=== PATIENT | female | born 1995 | race Caucasian/White ===

== ENCOUNTER → 2020-07-24 08:07 | Outpatient (CLI) | payer OTHER, SELFPAY ==
--- NOTE | 2020-07-24 08:17 | RAD_ITS ---
STUDY: X-RAY - ESOPHAGUS (BARIUM SWALLOW) WITH FLUOROSCOPY REASON FOR EXAM: Female, 25 years old. SENSATION IF SOMETHING BEING STUCK IN THROAT X 2 YEARS, CONSTANT THROAT CLEARING -- 7.32 mGy TECHNIQUE: 15 view(s) of the esophagus were obtained following swallowing of barium. FLUOROSCOPY TIME (if supplied): (0:28) minutes/seconds COMPARISON: None. FINDINGS: There is no demonstrated esophageal foreign body. There is no demonstrated stricture or mucosal abnormality. Normal gastroesophageal junction, without a demonstrated hiatal hernia. The patient ingested a 12 mm tablet of barium without any difficulty. Normal visualized aortic arch and descending thoracic aorta. Normal visualized pulmonary parenchyma. Normal visualized osseous structures of the thorax. RAD/Esophagus Dual Contrast IMPRESSION: Normal plain film x-ray examination (barium swallow) of the esophagus. Electronically Signed: Fly Escobedo MD at 10:22 EST , Service support ,
== END ==
PROVIDERS: Referring Provider Otolaryngology; Visit Provider Otolaryngology
DX: R13.10 Dysphagia, unspecified (principal)
CPT/HCPCS: 74221

== ENCOUNTER 2021-08-22 07:08 | Day surgery (SDC) | payer BC, SELFPAY ==
--- NOTE | 2021-08-22 | ESO_PTH ---
PATIENT: MARTIN HARVEY LOC: [facility] U#:[id number] AGE/SX: 26/F ROOM: RE08/22/[address]: Dr. Patel Harmon DO : 1995 BED: DIS: 08/22/2021 SPEC #: [id number] RECD: 08/22/21 12:34 STATUS: OKSANA EDIE #: [id number] SHANIQUE: 08/22/21 00:[address]: Patel Harmon DEPT: SURGICAL PATHOLOGY RECD BY: Ivan Ballard ENTERED: 08/22/21 12:34 SP TYPE: ROSITA IZQUIERDO DR: Dr. Shaq Bergman MD Tissues: A - Esophagus, NOS B - Esophageal mucous membrane Procedures: Special Stain Group II Surgery Specimen Level IV Alcian Blue/PAS (control) HEADER OPERATION: [place] PRE-OP DIAGNOSIS: Chronic throat clearing, heartburn TISSUE SUBMITTED: A ? Distal esophagus biopsy, B ? Random esophagus biopsy MICROSCOPIC DIAGNOSIS A. Distal esophagus, biopsy: Gastroesophageal junctional mucosa with chronic inflammation. Focal goblet cell metaplasia is present. No evidence of dysplasia. See comment. B. Esophagus, biopsy: No pathologic change. AM:rosalinda 08/23/2021 COMMENT A. Alcian blue/PAS stain with matched control supports the above diagnosis. MICROSCOPIC DESCRIPTION Slides are reviewed. GROSS DESCRIPTION A - Received in fixative is one container labeled with the patient's name and designated esophagus biopsy. The specimen consists of two irregular fragments of light veliz soft tissue that in aggregate measure 0.6 x 0.6 x 0.1 cm. The specimen is totally submitted in one cassette. B - Received in fixative is one container labeled with the patient's name and designated random esophagus biopsy. The specimen consists of multiple irregular fragments of light veliz soft tissue that in aggregate measure 0.7 x 0.3 x 0.1 cm. The specimen is totally submitted in one cassette. / AM:rosalinda 08/22/2021 TC:3 CPT: 50561 x2, 99439
[2021-08-22 07:39] VITALS: BP 106/65; PULSE 86; RESP 18; TEMP 36.7; O2SAT 100; BMI 20.9
[2021-08-22 07:40] LABS: Internal QC Validated? YES +Cl - CLEAR BKGD; Pregnancy, Urine Negative Negative
[2021-08-22] MEDS: Lactated Ringers 1,000 ML 15 ML IV (07:40)
--- NOTE | 2021-08-22 08:24 | HP.PCM_ITS ---
History and Physical Date of Admission: 08/22/21 MARTIN HARVEY, is a 26 F who presents to the office today for 6 wk f/u chronic throat clearing that began several years ago. At her appt last month, Dr Harmon changed her from omeprazole 40 mg daily, since it didn't help the throat clearing, to famotidine 20 mg BID and cetirizine QAM. She notes some improvement in throat clearing during the day. Still most symptomatic around 8 AM. Usually doing schoolwork at that time. Master's program online in behavior analysis. Doesn't matter if she has coffee or breakfast or not. Still takes omeprazole prn for heartburn, gets it few times a week. Heartburn not worse since she stopped omeprazole; it does help to take omeprazole--but she wonder if it's psychosomatic that it gives relief. No pattern she can discern. Has never had EGD. ENT has evaluated her twice, no cause for the throat clearing found, no issues found. ROS ENT ENT: Positive for nasal congestion Gastro GI: Positive for heartburn Musc Musculoskeletal: Positive for back pain, numbness and tingling Neuro Neurology: Positive for numbness and tingling Exam Const General: cooperative, well developed and well groomed HENMT Throat: other (clears throat repeatedly) Psych Mood: anxious mood Quality Reporting Tobacco Screening ([facility]) Smoking Status: Former smoker Assessment and Plan Assessment and Plan (1) Chronic throat clearing: Status: Chronic (2) Heartburn: Status: Acute Plan: Some improvement in chronic throat clearing so she would like to continue with current regimen of cetirizine QAM and famotidine 20 mg BID. Because she has chronic heartburn it makes sense to get upper endoscopy to r/o esophagitis, Farmer's esophagus, gastritis. Can continue omeprazole prn. f/u 2 wks after EGD I have re-examined the patient. There are no clinical changes since date of exam.
[2021-08-22 08:51] VITALS: BP 106/65; BP 90/57; PULSE 97; RESP 16; TEMP 36.4; O2SAT 96
--- NOTE | 2021-08-22 08:54 | OP.EGD_ITS ---
Patient Name: Jazmyn Garcia Procedure Date: 08/22/2021 8:25 AM Date of : 1995 Age: 26 Procedure: Upper GI endoscopy Indications: Failure to respond to medical treatment Providers: Patel Harmon DO Medicines: See the Anesthesia note for documentation of the administered medications Patient Profile: This is a 26 year old female. Refer to note in patient chart for documentation of history and physical. Patient has symptoms of acute throat burning. Complications: No immediate complications. Procedure: Pre-Anesthesia Assessment: - Prior to the procedure, a History and Physical was performed, and patient medications and allergies were reviewed. The patient is competent. The risks and benefits of the procedure and the sedation options and risks were discussed with the patient. All questions were answered and informed consent was obtained. Patient identification and proposed procedure were verified by the physician in the pre-procedure area. Mental Status Examination: alert and oriented. Airway Examination: normal oropharyngeal airway and neck mobility. Respiratory Examination: clear to auscultation. CV Examination: normal. Prophylactic Antibiotics: The patient does not require prophylactic antibiotics. Prior Anticoagulants: The patient has taken no previous anticoagulant or antiplatelet agents. ASA Grade Assessment: II - A patient with mild systemic disease. After reviewing the risks and benefits, the patient was deemed in satisfactory condition to undergo the procedure. The anesthesia plan was to use moderate sedation / analgesia (conscious sedation). Immediately prior to administration of medications, the patient was re-assessed for adequacy to receive sedatives. The heart rate, respiratory rate, oxygen saturations, blood pressure, adequacy of pulmonary ventilation, and response to care were monitored throughout the procedure. The physical status of the patient was re-assessed after the procedure. After obtaining informed consent, the endoscope was passed under direct vision. Throughout the procedure, the patient's blood pressure, pulse, and oxygen saturations were monitored continuously. The gastroscope was introduced through the mouth, and advanced to the second part of duodenum. The upper GI endoscopy was accomplished without difficulty. The patient tolerated the procedure well. Moderate Sedation: Moderate (conscious) sedation was administered by the endoscopy nurse and supervised by the endoscopist. The patient's oxygen saturation, heart rate, blood pressure and response to care were monitored. Total physician intraservice time was 15 minutes. Scope In: 8:41:30 AM Scope Out: 8:46:20 AM Total Procedure Duration Time 0 hours 4 minutes 50 seconds Findings: LA Grade A (one or more mucosal breaks less than 5 mm, not extending between tops of 2 mucosal folds) esophagitis with no bleeding was found 34 to 36 cm from the incisors. Biopsies were taken with a cold forceps for histology. Verification of patient identification for the specimen was done. Estimated blood loss was minimal. No gross lesions were noted in the entire examined stomach. The second portion of the duodenum was normal. Impression: - LA Grade A reflux esophagitis. Biopsied. - No gross lesions in the stomach. - Normal second portion of the duodenum. Recommendation: - Await pathology results. - Repeat upper endoscopy in 1 year. - Return to GI office. - Continue present medications. Procedure Code(s): --- Professional --- 84411, Esophagogastroduodenoscopy, flexible, transoral; with biopsy, single or multiple 19019, 59, Moderate sedation services provided by the same physician or other qualified health associate director career services performing the diagnostic or therapeutic service that the sedation supports, requiring the presence of an independent trained observer to assist in the monitoring of the patient's level of consciousness and physiological status; initial 15 minutes of intraservice time, patient age 5 years or older CPT copyright 2017 [employer] [employer]. All rights reserved. The codes documented in this report are preliminary and upon buffet waiter/waitress review may be revised to meet current compliance requirements. Patel Harmon DO 08/22/2021 8:53:41 AM This report has been signed electronically. Number of Addenda: 1 Note Initiated On: 08/22/2021 8:25 AM Addendum Number: 1 Addendum Date: 03/06/2022 6:28:31 AM MAC was used as sedation for this procedure. Patel Harmon DO 03/06/2022 6:28:38 AM This report has been signed electronically.
[2021-08-22 08:55] VITALS: BP 106/65; BP 90/51; PULSE 93; RESP 16; O2SAT 96
--- NOTE | 2021-08-22 08:55 | OP.CCLET_ITS ---
03/06/2022 Shaq Bergman [address] [place] [address] [place] [address] Re : Upper GI endoscopy procedure for Jazmyn Garcia Dear Dr. Bergman This procedure was performed on Sunday, August 22, 2021. My impressions and recommendations are as follows: Impressions : - LA Grade A reflux esophagitis. Biopsied. - No gross lesions in the stomach. - Normal second portion of the duodenum. Recommendations : - Await pathology results. - Repeat upper endoscopy in 1 year. - Return to GI office. - Continue present medications. My findings are described in the full procedure note, which is enclosed. If I can be of further assistance, please feel free to contact me at . Sincerely, Patle Harmon, 08/22/2021 8:53:41 AM This report has been signed electronically.
[2021-08-22 09:00] VITALS: BP 100/72; BP 106/65; PULSE 79; RESP 16; O2SAT 99
[2021-08-22 09:07] VITALS: BP 106/65; BP 110/71; PULSE 87; RESP 16; TEMP 36.6; O2SAT 100
[2021-08-22 09:20] VITALS: BP 106/65
== END 2021-08-22 23:59 | disposition home or self-care (01) ==
LOC: EN 07:11 → AC 07:12
PROVIDERS: Anesthesiology; PCP Family Medicine; Referring Provider Family Medicine; Visit Provider Internal Medicine Gastroenterology
PROC: 0DJ08ZZ Inspection of Upper Intestinal Tract, Via Natural or Artificial Opening Endoscopic (ICD-10-PCS; CPT 43235; principal; 2021-08-22 08:10)
DX: K21.00 Gastro-esophageal reflux disease with esophagitis, without bleeding (principal); Z87.891 Personal history of nicotine dependence; F41.9 Anxiety disorder, unspecified; J45.909 Unspecified asthma, uncomplicated; Z79.899 Other long term (current) drug therapy; F32.A Depression, unspecified; G25.81 Restless legs syndrome
CPT/HCPCS: 43239; 81025; 87426; 88305; 88313; J7120; J2405

== ENCOUNTER → 2021-12-08 | Outpatient (CLI) | payer OTHER, SELFPAY ==
--- NOTE | 2021-12-08 10:17 | US_ITS ---
STUDY: THYROID ULTRASOUND REASON FOR EXAM: Female, 26 years old. Throat clearing, depression, possible palpable nodule TECHNIQUE: Ultrasound evaluation of the thyroid was performed with real-time and static johnson-scale imaging. COMPARISON: None. FINDINGS: RIGHT LOBE: The right lobe of the thyroid gland measures 4.5 x 1.3 x 1.1 cm. There is a homogeneous echotexture. There are no demonstrated solid, cystic or complex lesions. LEFT LOBE: The left lobe of the thyroid gland measures 3.7 x 1.5 x 1.0 cm. There is a homogeneous echotexture. There are no demonstrated solid, cystic or complex lesions. ISTHMUS: The isthmus measures 0.34 cm. US/Thyroid IMPRESSION: Enlarged right lobe of the thyroid gland. No discrete nodules. Electronically Signed: Leigh Dolan MD at 17:53 EDT ,
== END | disposition home or self-care (01) ==
LOC: US 10:16
PROVIDERS: PCP Family Medicine; Referring Provider Surgery; Visit Provider Surgery
DX: R09.89 Other specified symptoms and signs involving the circulatory and respiratory systems (principal); F32.A Depression, unspecified; E07.89 Other specified disorders of thyroid
CPT/HCPCS: 76536

== ENCOUNTER 2021-12-20 07:31 | Day surgery (SDC) | payer OTHER, SELFPAY ==
[2021-12-20] VITALS (7 sets, daily range): BP systolic 85–103; BP diastolic 57–71; PULSE 71–87; RESP 16–18; TEMP 36.1–36.6; O2SAT 99–100; BMI 20.9
[2021-12-20 08:08] LABS: Internal QC Validated? YES +Cl - CLEAR BKGD; Pregnancy, Urine Negative Negative
[2021-12-20] MEDS: Lactated Ringers 1,000 ML 15 ML IV (08:29)
--- NOTE | 2021-12-20 08:30 | IMM_PTH ---
PATIENT: MARTIN HARVEY LOC: [facility] U#:[id number] AGE/SX: 26/F ROOM: RE12/20/[address]: Dr. David Tracy MD : 1995 BED: DIS: 12/20/2021 SPEC #: [id number] RECD: 12/20/21 12:58 STATUS: OKSANA RESandor #: [id number] SHANIQUE: 12/20/21 08:[address]: David Tracy DEPT: IMMUNOHISTOCHEMISTRY RECD BY: Mary Beth Fox ENTERED: 12/20/21 12:58 SP TYPE: IMMUNO OTHR DR: Dr. Shaq Bergman MD Tissues: Stomach, NOS Procedures: H Pylori (initial) PHYSICIAN & INSTITUTION [place] [address] SPECIMEN INFORMATION: Tissue Source: Antrum biopsy Clinical Info: Chronic throat clearing, Farmer?s esophagus Specimen Number: [id number] CPT code: 75376 METHODOLOGY: Deparaffinized sections of prefer/formalin-fixed tissue or PAP/DQ stained slides are incubated with monoclonal/polyclonal antibodies/oligonucleotide probes. Localization is made via biotin free immunoperoxidase method. Appropriate controls are performed and reacted as expected. Results on target cell population are indicated in the following table: RESULTS: ANTIBODY / CLONE RESULT H Pylori (polyclonal) negative These tests were developed and their performance characteristics determined by [facility]. They may not have been cleared or approved by the U.S. Food and Drug Administration. The FDA has determined that such clearance or approval is not necessary. The above immunohistochemical/dualISH markers are ordered and reviewed by the Pathologist. INTERPRETATION: Antrum, biopsy: Negative for Helicobacter pylori organisms. SUZANNE:rosalinda 12/21/2021
--- NOTE | 2021-12-20 08:30 | EGD_PTH ---
PATIENT: MARTIN HARVEY LOC: EN U#:[id number] AGE/SX: 26/F ROOM: RE12/20/[address]: Dr. David Tracy MD : 1995 BED: DIS: 12/20/2021 SPEC #: [id number] RECD: 12/20/21 10:26 STATUS: OKSANA MCKINNEYSandor #: [id number] SHANIQUE: 12/20/21 08:[address]: David Tracy DEPT: SURGICAL PATHOLOGY RECD BY: Elizabeth Guzman ENTERED: 12/20/21 11:09 SP TYPE: EGD BIOPSY OT DR: Dr. Shaq Bergman MD Tissues: Gastric mucous membrane Procedures: Surgery Specimen Level IV HEADER OPERATION: EGD ? 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 pylori MICROSCOPIC DIAGNOSIS Antrum, biopsy: Mild gastritis. See microscopic description and comment. SJ:rosalinda 12/21/2021 COMMENT The results of immunohistochemistry for Helicobacter pylori will be reported separately ([id number]). MICROSCOPIC DESCRIPTION Slides are reviewed. The specimen shows fragments of gastric mucosa with chronic inflammatory cell infiltrates in the lamina propria consisting of lymphocytes and plasma cells, consistent with mild chronic gastritis. GROSS DESCRIPTION Received in fixative is one container labeled with the patient's name and designated antrum biopsy. The specimen consists of multiple irregular fragments of light veliz soft tissue that in aggregate measure 0.7 x 0.4 x 0.1 cm. The specimen is totally submitted in one cassette. / SUZANNE:rosalinda 12/20/2021 TC:3 CPT: 31325
--- NOTE | 2021-12-20 08:39 | HP.PCM_ITS ---
History and Physical Date of Admission: 12/20/21 Date of Service:? 11/26/21 MR#: [id number] Acct: [id number] Name:MARTIN HIGGINBOTHAM Rep #: [id number] : 1995 ? ? Provider: Dr. David Tracy MD Age/Sex:? 26/F ? ? Location: [facility] Status: Signed Intake Vital Signs ? 11/26/2208:23 Height 5 ft 5 in Weight: 127 lb 2 oz BMI 21.1 BP 111/70 Blood Pressure Location Lt brachial Position Sitting Respiration 16 Pulse 89 Pulse Source Monitor Temp 98 F Temp Source Temporal Pulse Oximetry (%) 100 Oxygen Delivery Method room air Intake Visit Reasons:?FUNDOPLICATION Chief Complaint: GERD; Fundoplication Wash Driller Required: No Is patient in pain?: No Allergies No Known Allergies Allergy (Verified 11/26/21 09:24) Medications bupropion HCl 100 mg tablet,12 hr sustained-release 100 mg PO BID 05/28/21 [History Confirmed 11/26/21] buspirone 5 mg tablet 5 mg PO BID 05/28/21 [History Confirmed 11/26/21] pantoprazole 40 mg tablet,delayed release 40 mg PO BID #60 tabs 10/08/21 [Rx Confirmed 11/26/21] PFSH Medical History? Alcohol use Anxiety Asthma Back pain Farmer's esophagus Chronic throat clearing Depression Eczema Former smoker Gastric reflux GERD (gastroesophageal reflux disease) Restless legs Seasonal allergies Surgical History? Hx of tonsillectomy Family History?(Updated 11/26/21 @ 09:23 by Odalis Friday) Mother Rheumatoid arthritisFather Colon cancer Anxiety Hypertension Heart diseaseUnknown Thyroid disorder Social History? 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 Former smoker alcohol intake:? current alcohol intake frequency: a few times a month Alcohol type: wine substance use type:? does not use what type of physical activity do you participate in:? walking HPI HPI HPI: MARTIN HARVEY, is a 26 F who presents to the office today for frequent throat clearing and finding of Farmer's esophagus on EGD from August 2021.? They are referred for surgical consultation from Dr. Harmon, gastroenterology. ? Patient states that she has minimal experience of heartburn.? Her symptoms of frequent throat clearing have been present since 2019.? She states she worked with an marble setter helper but was unable to come to any meaningful conclusions.? She denies any relation to any recent COVID diagnoses.? She states the symptoms are worse in the morning than in the evening.? There does not seem to be any clear correlation with food as she will sometimes experience the symptoms in the absence of any food intake at all.? She does believe that eating larger meals may contribute to her symptoms.? There is an occasional association of phlegm with the symptoms.? Denies any significant weight changes.? She denies any new life stressors.? Caffeine intake is limited to 1 cup coffee daily.? She has been on both omeprazole and pantoprazole.? She states that she discontinued the pantoprazole that she was recently prescribed because she felt there is at least some marginal benefit with omeprazole, but no benefit with the pantoprazole.? She denies any notice of new neck masses.? She does have a family history of thyroid disorders in maternal grandmother. Previous work-up has included: EGD on 08/22/2021 with biopsy findings of Farmer's esophagus without dysplasia.? She also had a prior barium swallow on 07/24/2020 which was read as normal and there is no mention of hiatal hernia or acid reflux. ROS General General: No weight change, appetite, fatigue, colon cancer, breast cancer or weakness HEENT HEENT: No difficulty swallowing, eye injury, eye surgery, swollen glands or hoarseness Endo Endocrine: No thyroid disease, diabetes mellitus, thyroid cancer, Hair loss, heat intolerance or cold intolerance Skin Skin: No rash or changing moles Musc Musculoskeletal: Yes back problems; No arthritis, rheumatoid arthritis, gout or joint pain Cardio Cardiovascular: No murmur, pacemaker, heart disease, atrial fibrillation, high blood pressure, heart attack, heart stent, palpitations, shortness of breat with exertion or chest pain Psych Psychiatric: Yes depression and anxiety; No hearing voices Resp Respiratory: No shortness of breath, No sleep apnea, No cough, No COPD, No asthma, No emphysema and No wheezing Gastro Gastrointestinal: No abdominal pain, No nausea or vomiting, No diarrhea, No constipation, No blood in stool, Yes acid reflux, No hemorrhoids, No ulcers, No gallbladder problem and No black,tarry stools Stas Hematologic: No blood thinners, No blood disorders, No bleeding, No anemia and No blood clots Neuro Neurologic: No system reviewed and no additional complaints, except as documented, No as per HPI, No abnormal gait, No abnormal hearing, No abnormal movements, No abnormal speech, No behavioral changes, No burning sensations, No confusion, No convulsions, No disequilibrium, No dizziness, No localized weakness, No frequent falls, No headache(s), No lack of coordination, No loss of vision, No memory loss, No numbness, No other visual disturbances, No radicular pain, No restless legs, No sensory deficit, No syncope, No tingling, No tremor(s), No weakness and No other Exam Const General: cooperative, healthy appearing, comfortable and no acute distress Neck Thyroid: nontender Lymphatic: no lymphadenopathy noted Other: slight fullness of right neck > left Resp Effort & Inspection: normal respiratory effort Auscultation: no rales, no rhonchi and no wheezes Cardio Rate: regular rate Rhythm: regular rhythm Heart Sounds: S1 normal and S2 normal GI Inspection: non-distended and no scars Palpation: soft, no hernias and nontender Assessment and Plan Assessment and Plan (1) Chronic throat clearing: ?Status:?Chronic ?Comment: Is a 26-year-old female who presents with a 3-year history of frequent throat clearing.? She finds this symptom rather distressing and went for work-up with marble setter helper that was nonrevealing.? Subsequent referral to gastroenterology uncovered Farmer's esophagus on EGD and August 2021.? She now presents for consideration of possible antireflux surgery.? To date, upper GI was unremarkable and discussions have been held regarding possible pH probe and manometry.? Given her atypical symptoms with very minimal complaints of heartburn.? I would like to proceed with repeat EGD and pH probe placement.? Also investigate the possibility of thyroid involvement for completeness of work-up and have ordered a thyroid ultrasound. ?Plan: ? Schedule for EGD with pH probe placement ? Thyroid ultrasound ordered (2) Farmer's esophagus: ?Status:?Acute ?Comment: We will continue work-up for gastroesophageal reflux disease.? I have counseled patient that symptoms are somewhat atypical and would like to further investigation somewhat before discussing possible fundoplication. ?Plan: EGD with pH probe placement, then possible manometry (3) Palpable thyroid: ?Status:?Acute ?Comment: Patient has somewhat asymmetrical thyroid gland.? No discrete nodularity, but seems to be more full on the right side.? We will follow with formal thyroid ultrasound.? Patient does have a family history of thyroid disorders in maternal grandmother. I have re-examined the patient. There are no clinical changes since date of exam. Reviewed details and purpose of pH probe placement. Also reviewed results of patient's recent thyroid ultrasound. All questions were answered. Plan to proceed with EGD and pH probe placement as previously scheduled.
--- NOTE | 2021-12-20 09:16 | OP.EGD_ITS ---
Patient Name: Jazmyn Garcia Procedure Date: 12/20/2021 8:37 AM Date of : 1995 Age: 26 Procedure: Upper GI endoscopy Indications: Farmer's esophagus, Throat clearing Providers: David Tracy MD Medicines: See the Anesthesia note for documentation of the administered medications Patient Profile: Refer to note in patient chart for documentation of history and physical. Complications: No immediate complications. Estimated blood loss: Minimal. Procedure: Pre-Anesthesia Assessment: - The heart rate, respiratory rate, oxygen saturations, blood pressure, adequacy of pulmonary ventilation, and response to care were monitored throughout the procedure. After obtaining informed consent, the endoscope was passed under direct vision. Throughout the procedure, the patient's blood pressure, pulse, and oxygen saturations were monitored continuously. The Endoscope was introduced through the mouth, and advanced to the second part of duodenum. The patient tolerated the procedure well. Scope In: 8:50:59 AM Scope Out: 9:05:43 AM Total Procedure Duration Time 0 hours 14 minutes 44 seconds Findings: The first portion of the duodenum and second portion of the duodenum were normal. No biopsies or other specimens were collected for this exam. Striped moderately erythematous mucosa without bleeding was found in the gastric body and in the gastric antrum. Biopsies were taken with a cold forceps for Helicobacter pylori cultures. Estimated blood loss was minimal. The Z-line was regular and was found 42 cm from the incisors. No biopsies or other specimens were collected for this exam. The DURANT capsule with delivery system was introduced through the mouth and advanced into the esophagus, such that the DURANT pH capsule was positioned 36 cm from the incisors, which was 6 cm proximal to the GE junction. The DURANT pH capsule was then deployed and attached to the esophageal mucosa. The delivery system was then withdrawn. Endoscopy was utilized for probe placement and diagnostic evaluation. Impression: - Normal first portion of the duodenum and second portion of the duodenum. No specimens collected. - Erythematous mucosa in the gastric body and antrum. Biopsied. - Z-line regular, 42 cm from the incisors. No specimens collected. - The DURANT pH capsule was deployed. Recommendation: - Discharge patient to home (via wheelchair). - Resume regular diet today. - Await pathology results. - Telephone my office for pathology results in 1 week. - Continue present medications. Procedure Code(s): --- Professional --- 30247, Esophagogastroduodenoscopy, flexible, transoral; with biopsy, single or multiple Diagnosis Code(s): --- Professional --- K22.70, Farmer's esophagus without dysplasia K31.89, Other diseases of stomach and duodenum CPT copyright 2017 [employer]. All rights reserved. The codes documented in this report are preliminary and upon scrub nurse review may be revised to meet current compliance requirements. David Tracy MD 12/20/2021 9:16:00 AM This report has been signed electronically. Number of Addenda: 0 Note Initiated On: 12/20/2021 8:37 AM
--- NOTE | 2021-12-20 09:18 | OP.CCLET_ITS ---
12/20/2021 Shaq Bergman [address] [place] [address] [place] [address] Re : Upper GI endoscopy procedure for Jazmyn Garcia Dear Dr. Bergman This procedure was performed on December. My impressions and recommendations are as follows: Impressions : - Normal first portion of the duodenum and second portion of the duodenum. No specimens collected. - Erythematous mucosa in the gastric body and antrum. Biopsied. - Z-line regular, 42 cm from the incisors. No specimens collected. - The DURANT pH capsule was deployed. Recommendations : - Discharge patient to home (via wheelchair). - Resume regular diet today. - Await pathology results. - Telephone my office for pathology results in 1 week. - Continue present medications. My findings are described in the full procedure note, which is enclosed. If I can be of further assistance, please feel free to contact me at Doctor phone number(s): , Work: . Sincerely, David Tracy MD 12/20/2021 9:16:00 AM This report has been signed electronically.
--- NOTE | 2021-12-27 12:46 | PCM.HP.BLA ---
History and Physical Date of Admission: 12/20/21 Study: 48-hour?Hickman?pH capsule was placed on esophagus during EGD on 12/20/[address] Tracy ? Indications for?Hickman?pH Study: frequent throat clearing, Farmer's esophagus ? Study Findings?? ? 48-hour overview: there were a total of 20 refluxes, the longest reflux was 25 minutes, that was while supine. ? Using data from the worst of the two days, acid exposure time is 2.4%.?Percent acid exposure time?is the single parameter which has been shown to best correlate with endoscopic damage. Normal is <4.4% on the worst day, therefore this result is normal.?Acid exposure time on this day while supine was 4.1% which was also normal. ? The?DeMeester Score?(normal is <14.72) on the worst of the two days is 11.9 which is?normal.?The DeMeester Score is a method of adding weights to six common pH measurement parameters, and presenting esophageal acid exposure data as a cumulative score.? ? Symptom Index (SI)?>50% is significant (it indicates that >50% of the observed symptoms were associated with reflux).? In this study, the SI is 0% which is not significant. ? Symptom Association Probability (SAP)?helps to determine if there is a true correlation between symptoms and reflux. SAP >95% indicates a likely correlation.? In this study, the SAP for heartburn is 95.6% which?does indicate a true correlation.? ? Interpretation ? The percent acid exposure time and the DeMeester Score were normal. The Symptom Association Probability does indicate a true correlation between heartburn and reflux. Charges/Coding Procedures Gastroenterology CF Procedures [id number]: [id number] Gastroesophageal reflux test
== END 2021-12-20 10:08 | disposition home or self-care (01) ==
LOC: EN 07:32 → AC 07:34
PROVIDERS: Anesthesiology; PCP Family Medicine; Referring Provider Family Medicine; Visit Provider Surgery
PROC: (CPT 43239; principal; 2021-12-20 08:25)
DX: K29.70 Gastritis, unspecified, without bleeding (principal); K22.70 Barrett's esophagus without dysplasia; Z80.0 Family history of malignant neoplasm of digestive organs; Z87.891 Personal history of nicotine dependence; F41.9 Anxiety disorder, unspecified; F32.A Depression, unspecified; G25.81 Restless legs syndrome; Z79.899 Other long term (current) drug therapy; K21.9 Gastro-esophageal reflux disease without esophagitis; J45.909 Unspecified asthma, uncomplicated
CPT/HCPCS: 43239; 81025; 88305; 88342; J7120; J2405